=== PATIENT | female | born 1975 | race Caucasian/White ===

== ENCOUNTER 2017-04-24 18:56 | Emergency (ER) | payer OTHER ==
[2017-04-24 19:02] VITALS: BP 145/72; PULSE 83; TEMP 98.3; BMI 26.6
--- NOTE | 2017-04-24 19:02 | PDOC ---
Rapid Medical Evaluation Time Seen by Provider: 04/24/17 18:59 Medical Evaluation: Allergies Allergy/AdvReac Type Severity Reaction Status Date / Time No Known Allergies Allergy Verified 04/24/17 18:59 04/24/17 18:59 I have performed a brief in-person evaluation of this patient. The patient presents with a chief complaint of: vag bleed. Unk preg status Pertinent physicial exam findings:ABSD Soft. NT/ND I have ordered the following:UA, serum preg, cbc, cmp The patient will proceed to the ED for further evaluation. Discharge Disposition - Referrals Referrals: Peggy Fatima PA [Primary Care Provider] - - Patient Instructions - Post Discharge Activity
[2017-04-24 19:21] LABS: URINE APPEARANCE CLEAR; URINE BILIRUBIN NEGATIVE (NEGATIVE); URINE BLOOD 3+ (NEGATIVE); URINE COLOR COLORLESS; URINE GLUCOSE (UA) NEGATIVE (NEGATIVE); URINE KETONE NEGATIVE (NEGATIVE); URINE LEUK ESTERASE NEGATIVE (NEGATIVE); URINE NITRITE NEGATIVE (NEGATIVE); URINE PROTEIN NEGATIVE (NEGATIVE); URINE UROBILINOGEN NEGATIVE mg/dL (0.2-1.0)
[2017-04-24 19:22] LABS: BASO % 0.4 % (0-2.0); EOS % 0.4 % (0-4.5); HEMATOCRIT 38.9 % (32.4-45.2); HEMOGLOBIN 13.3 GM/dL (10.7-15.3); LYMPH % 19.9 % (8-40); MCHC 34.1 g/dl (32.0-36.0); MEAN PLT VOLUME 9.6 fl (7.5-11.1); MONO % 5.6 % (3.8-10.2); NEUT % 73.7 % (42.8-82.8); PLATELET COUNT 171 K/MM3 (134-434); RBC 4.42 M/mm3 (3.60-5.2); RDW 13.6 % (11.6-15.6); WHITE BLOOD COUNT 6.4 K/mm3 (4.0-10.0)
[2017-04-24 19:32] LABS: EPI CELLS RARE /HPF (FEW)
[2017-04-24 19:55] LABS: ALBUMIN 3.8 g/dl (3.4-5.0); ANION GAP 7 (8-16); BILIRUBIN,TOTAL 0.4 mg/dL (0.2-1.0); BLOOD UREA NITROGEN 15 mg/dL (7-18); CALCIUM 8.3 mg/dL (8.5-10.1); CHLORIDE 105 mmol/L (98-107); CO2 26 mmol/L (21-32); CREATININE 0.7 mg/dL (0.55-1.02); GLUCOSE,RANDOM 134 mg/dL (74-106); POTASSIUM 3.4 mmol/L (3.5-5.1); SGOT/AST 21 U/L (15-37); SGPT/ALT 27 U/L (12-78); SODIUM 138 mmol/L (136-145)
[2017-04-24 19:56] LABS: ALK PHOS 116 U/L (45-117)
--- NOTE | 2017-04-24 22:44 | PDOC ---
History of Present Illness - General Chief Complaint: Vaginal Bleeding Stated Complaint: VAGINAL BLEEDING Time Seen by Provider: 04/24/17 18:59 - History of Present Illness Initial Comments: 04/24/17 22:39 Pt is a 41F w/ no significant PMH who presents to ED with painless vaginal bleeding. Pt states she was told by her DOCUMENT COORDINATOR (Peggy Fatima) that she was in Dec. Then in Feb, she went to the same clinic and was told she had an "empty sac". Today around 4pm she developed vaginal bleeding with clots. She has had 4 episodes so far today, and is currently bleeding mildly. She did admit to some mild back and abdominal pain earlier in the day, which has resolved completely. Prior pregnancies were uneventful with spontaneous vaginal deliveries. Pt denies fever, cp, sob, nausea, vomiting, diarrhea. Past History - Past Medical History Allergies/Adverse Reactions: Allergies Allergy/AdvReac Type Severity Reaction Status Date / Time No Known Allergies Allergy Verified 04/24/17 18:59 Home Medications: Ambulatory Orders NK [No Known Home Medication] 04/24/17 COPD: No - Suicide/Smoking/Psychosocial Hx Smoking History: Never smoked Have you smoked in the past 12 months: No Information on smoking cessation initiated: No Hx Alcohol Use: No Drug/Substance Use Hx: No Substance Use Type: None Review of Systems - Review of Systems Able to Perform ROS?: Yes Is the patient limited [place]arian proficient: Yes Constitutional: Yes: Symptoms Reported. No: Chills, Diaphoresis, Fever HEENTM: Yes: Symptoms Reported. No: Eye Pain, Blurred Vision Respiratory: Yes: Symptoms reported. No: Cough, Orthopnea, Shortness of Breath Cardiac (ROS): Yes: Symptoms Reported. No: Chest Pain ABD/GI: Yes: Symptoms Reported. No: Abdominal Distended, Abd. Pain w/ defecation, Constipated, Diarrhea, Difficulty Swallowing, Poor Appetite, Poor Fluid Intake, Abdominal cramping : Yes: Symptoms Reported, Discharge (bloody x 4 episodes). No: Flank Pain, Incontinence, Pain Musculoskeletal: Yes: Symptoms Reported. No: Back Pain, Muscle Pain, Muscle Weakness Integumentary: Yes: Symptoms Reported. No: Rash Neurological: Yes: Symptoms reported. No: Headache, Numbness *Physical Exam - Vital Signs Last Vital Signs Temp Pulse Resp BP Pulse Ox 98.3 F 83 18 145/72 100 04/24/17 19:00 04/24/17 19:00 04/24/17 19:00 04/24/17 19:00 04/24/17 19:00 - Physical Exam General Appearance: Yes: Nourished, Appropriately Dressed. No: Apparent Distress HEENT: positive: EOMI, IVANA, Normal ENT Inspection, Normal Voice Neck: positive: Supple. negative: Tender Respiratory/Chest: positive: Lungs Clear, Normal Breath Sounds. negative: Chest Tender, Respiratory Distress Cardiovascular: positive: Regular Rhythm, Regular Rate, S1, S2. negative: Edema Vascular Pulses: Dorsalis-Pedis (R): 2+, Doralis-Pedis (L): 2+ Female Pelvic Exam: positive: normal external exam, vaginal bleeding (small volume). negative: adnexal tenderness Gastrointestinal/Abdominal: positive: Normal Bowel Sounds, Flat, Soft. negative : Tender, Organomegaly Musculoskeletal: positive: Normal Inspection. negative: CVA Tenderness Neurologic: positive: Fully Oriented, Alert, Normal Mood/Affect ED Treatment Course - LABORATORY CBC & Chemistry Diagram: 04/24/17 19:11 04/24/17 19:11 - ADDITIONAL ORDERS Additional order review: Laboratory Results 04/24/17 04/24/17 04/24/17 19:11 19:11 19:11 Sodium 138 Potassium 3.4 L Chloride 105 Carbon Dioxide 26 Anion Gap 7 L BUN 15 Creatinine 0.7 Creat Clearance w eGFR > 60 Random Glucose 134 H Calcium 8.3 L Total Bilirubin 0.4 AST 21 ALT 27 Alkaline Phosphatase 116 Total Protein 7.0 Albumin 3.8 Beta HCG, Quant Serum , Qual Positive Urine Color Colorless Urine Appearance Clear Urine pH 6.0 Ur Specific [place] 1.002 Urine Protein Negative Urine Glucose (UA) Negative Urine Ketones Negative Urine Blood 3+ H Urine Nitrite Negative Urine Bilirubin Negative Urine Urobilinogen Negative Ur Leukocyte Esterase Negative Urine WBC (Auto) <1 Urine RBC (Auto) 1 Ur Epithelial Cells Rare 04/24/17 19:08 Sodium Potassium Chloride Carbon Dioxide Anion Gap BUN Creatinine Creat Clearance w eGFR Random Glucose Calcium Total Bilirubin AST ALT Alkaline Phosphatase Total Protein Albumin Beta HCG, Quant 106.4 Serum , Qual Urine Color Urine Appearance Urine pH Ur Specific [place] Urine Protein Urine Glucose (UA) Urine Ketones Urine Blood Urine Nitrite Urine Bilirubin Urine Urobilinogen Ur Leukocyte Esterase Urine WBC (Auto) Urine RBC (Auto) Ur Epithelial Cells 04/24/17 19:11 RBC 4.42 MCV 88.0 MCHC 34.1 RDW 13.6 MPV 9.6 Neutrophils % 73.7 Lymphocytes % 19.9 Monocytes % 5.6 Eosinophils % 0.4 Basophils % 0.4 Medical Decision Making - Medical Decision Making 04/24/17 22:45 Pt is a 41F who presents to ED with painless vaginal bleeding and positive test. Labs unremarkable apart from UA pos for blood and BHcg 104 Possible that this is a menstrual cycle. U/S results pending. 04/24/17 23:25 U/S results consistent with blighted ovum/missed . *DC/Admit/Observation/Transfer - Referrals Referrals: Peggy Fatima PA [Primary Care Provider] - - Patient Instructions - Post Discharge Activity
--- NOTE | 2017-04-25 00:10 | PDOC ---
Attending Attestation - Resident Resident Name: Arthur Taveras - ED Attending Attestation I have performed the following: I have examined & evaluated the patient, The case was reviewed & discussed with the resident, I agree w/resident's findings & plan, Exceptions are as noted - HPI HPI: 04/25/17 01:13 The patient is a 41 year old, female with no significant pmhx who presents to the ED who presents with vaginal bleeding that began today. The patient reports that in December she was told she was at her GROUP WORKER appointment, however in February at another appointment she was told she had an empty sac. She reports not having her period for the past three weeks and today began experiencing vaginal bleeding and clots. Reports 4 episodes of period like bleeding with some clots during one of the episodes of bleeding. She also reported lower back and lower abdominal pain which went away with Tylenol. She denies any history of spontaneous in the past. She denies any fevers or chills. Denies headache, weakness or numbness, abd pain, LE edema, N/V/D. - Physicial Exam PE: 04/25/17 01:19 GENERAL: Awake, alert, and fully oriented, in no acute distress HEAD: No signs of trauma EYES: PERRLA, EOMI, sclera anicteric, conjunctiva clear ENT: Auricles normal inspection, hearing grossly normal, nares patent, oropharynx clear without exudates. Moist mucosa NECK: Normal ROM, supple, no lymphadenopathy, JVD, or masses LUNGS: Breath sounds equal, clear to auscultation bilaterally. No wheezes, and no crackles HEART: Regular rate and rhythm, normal S1 and S2, no murmurs, rubs or gallops ABDOMEN: Soft, nontender, normoactive bowel sounds. No guarding, no rebound. No masses EVENT ORGANIZER: scant blood in vaginal vault, os is closed. no midline or adnexal ttp EXTREMITIES: Normal range of motion, no edema. No clubbing or cyanosis. No cords, erythema, or tenderness NEUROLOGICAL: Normal speech, cranial nerves intact, negative pronator drift, 5/ 5 strength in all 4 extremities, normal sensation to light touch in all 4 extremities, normal cerebellar exam, normal gait, normal reflexes and tone SKIN: Warm, Dry, normal turgor, no rashes or lesions noted. - Medical Decision Making 04/25/17 01:35 41-year-old female presents with vaginal bleeding. Urine test is mildly positive, beta hCG is in the 100s. It's unclear if this is positive due to her recent or if she is again. Initial blood pressure slightly elevated, On my exam blood pressure was 124/82. Labs unremarkable with an initial hemoglobin of 13 and repeat hemoglobin 13. Ultrasound with blighted ovum consistent with miscarriage. Discussed results with patient. She did not have any further bleeding in the emergency department. Advised patient to follow up with her OB within 2-3 days. I discussed the physical exam findings, ancillary test results and final diagnoses with the patient. I answered all of the patient's questions. The patient was satisfied with the care received and felt comfortable with the discharge plan and treatment plan. The patient will call their primary care physician within 24 hours to arrange follow-up and will return to the Emergency Department with any new, persistent or worsening symptoms.
[2017-04-25 00:45] LABS: BASO % 0.4 % (0-2.0); EOS % 0.8 % (0-4.5); HEMATOCRIT 39.6 % (32.4-45.2); HEMOGLOBIN 13.6 GM/dL (10.7-15.3); LYMPH % 28.7 % (8-40); MCH 30.2 pg (25.7-33.7); MCHC 34.4 g/dl (32.0-36.0); MEAN CELL VOLUME 87.6 fl (80-96); MEAN PLT VOLUME 9.7 fl (7.5-11.1); MONO % 7.9 % (3.8-10.2); NEUT % 62.2 % (42.8-82.8); PLATELET COUNT 184 K/MM3 (134-434); RBC 4.52 M/mm3 (3.60-5.2); RDW 13.3 % (11.6-15.6); WHITE BLOOD COUNT 5.9 K/mm3 (4.0-10.0)
== END 2017-04-25 02:11 | disposition home or self-care (01) ==
LOC: JER 18:56
DX: O26.891 Other specified pregnancy related conditions, first trimester (principal); O02.0 Blighted ovum and nonhydatidiform mole; Z3A.01 Less than 8 weeks gestation of pregnancy
CPT/HCPCS: 36415; 76817-TC; 80053; 81003; 81015; 84702; 84703; 85025; 86850; 86900; 86901; 99281-25

== ENCOUNTER 2019-04-06 12:00 | Inpatient (IN) | payer OTHER ==
[2019-04-06 12:45] LABS: BASO % 0.2 % (0-2.0); EOS % 0.2 % (0-4.5); HEMATOCRIT 37.2 % (32.4-45.2); HEMOGLOBIN 12.8 GM/dL (10.7-15.3); LYMPH % 15.8 % (8-40); MCH 30.3 pg (25.7-33.7); MCHC 34.3 g/dl (32.0-36.0); MEAN CELL VOLUME 88.2 fl (80-96); MEAN PLT VOLUME 10.3 fl (7.5-11.1); MONO % 6.1 % (3.8-10.2); NEUT % 77.7 % (42.8-82.8); PLATELET COUNT 165 K/MM3 (134-434); RBC 4.22 M/mm3 (3.60-5.2); RDW 14.8 % (11.6-15.6); WHITE BLOOD COUNT 6.4 K/mm3 (4.0-10.0)
[2019-04-06 12:58] LABS: INR 0.97 (0.83-1.09); PROTHROMBIN TIME (PATIENT) 11.4 SEC (9.7-13.0)
[2019-04-06 13:01] LABS: ACTIVATED PTT 27.8 SECONDS (25.2-36.5)
[2019-04-06 13:09] LABS: BLOOD UREA NITROGEN 11.8 mg/dL (7-18); CALCIUM 8.5 mg/dL (8.5-10.1); CREATININE 0.6 mg/dL (0.55-1.3); POTASSIUM 3.8 mmol/L (3.5-5.1)
[2019-04-06] MEDS ORDERED: ELECTROLYTE-148 SOLN 1,000 ML IV SCH (13:15)
[2019-04-06] MEDS ORDERED: OXYTOCIN 30 UNITS in 0.9% NS 30 UNIT/500 ML INFUS.BAG IVPB ONE (13:20)
--- NOTE | 2019-04-06 13:22 | HP ---
Past Medical History - Admission Chief Complaint: IOL History of Present Illness: 43yo @ 39.2wks by yang, LILY 04/11/19 here for IOL. Preg c/b AMA,EFW 6.1lbs on 35wk yang (86tile, AC 95%tile)- pelvis tested to 8.6lbs [facility] @ [address] History Source: Patient - Past Medical History CENTRIFUGAL SEPARATOR: No: Alzheimer's, CVA, Dementia, Migraine, Multiple Sclerosis, Peripheral Neuropathy, Parkinson's, Seizure, Syncope, TIA, Vertigo, Other Cardiovascular: No: AFIB, Aneurysm, Aortic Insufficiency, Aortic Stenosis, CAD, CHF, Deep Vein Thrombosis, HTN, Hyperlipdemia, NH, Mitral Insufficiency, Mitral Stenosis, Murmur, Pulmonary Hypertension, Other Pulmonary: No: Asthma, Bronchitis, Cancer, COPD, O2 Dependent, Pneumonia, Previously Intubated, Pulmonary Embolus, Pulmonary Fibrosis, Sleep Apnea, Other Gastrointestinal: No: Ascites, Cancer, Constipation, Crohn's Disease, Diverticulitis, Diverticulosis, Esophageal Varices, Gastritis, GERD, GI Bleed, Hemorrhoids, Hiatal Hernia, Inflamatory Bowel Disease, Irritable Bowel Disease, Pancreatitis, Peptic Ulcer Disease, Ulcerative Colitis, Other Hepatobiliary: No: Cirrhosis, Cholelithiasis, Cholecystitis, Choledocholithiasis , Hepatitis A, Hepatitis B, Hepatitis C, Other Renal/: No: Renal Failure, Renal Inusuff, BPH, Cancer, Hematuria, Hemodialysis , Neurogenic Bladder, Renal Calculi, UTI, Other Reproductive: No: Ectopic , Endometriosis, Fibroids, PID, Polycystic Ovary Syndrome, Postmenopausal, Other ...: 4 ...Para: 3 ...Term: 3 Heme/Onc: Yes: Anemia - Past Surgical History Past Surgical History: Yes: None Hx Myomectomy: No Hx Transabdominal Cerclage: No - Smoking History Smoking history: Never smoked Have you smoked in the past 12 months: No - Alcohol/Substance Use Hx Alcohol Use: No - Social History Usual Living Arrangement: Yes: With Spouse, Assisted Living ADL: Independent History of Recent Travel: No Home Medications - Allergies Allergies/Adverse Reactions: Allergies Allergy/AdvReac Type Severity Reaction Status Date / Time No Known Allergies Allergy Verified 04/24/17 18:59 - Home Medications Home Medications: Ambulatory Orders NK [No Known Home Medication] 04/24/17 Physical Exam - Maternity Constitutional: Yes: Well Nourished - Abdominal Exam/OB Number of Fetuses: Single Presentation: Vertex Contractions: Yes Regularity: Regular Intensity: Mild/Mod Category: I Accelerations: Non-Uniform Decelerations: None - Vaginal Exam/OB Vaginal Bleediing: No Speculum Exam: No Dilatation (cm): 3 Effacement (%): 50 Amniotic Membrane Status: Intact Presentation: Vertex/Position Station: -3 - Physical Exam Edema: No - Labs Lab Results: CBC, BMP 04/06/19 12:28 04/06/19 12:28 Imaging - Results Ultrasound: Report Reviewed Assessment/Plan 43yo @ 39.2wks here for IOL given age, sono (86%tile) Admit to L&D NPO, IVFS Cat I tracing AROM/pitocin Epidural prn Anticipate IGNACIO Aburto
[2019-04-06] MEDS ORDERED: OXYTOCIN 30 UNITS in 0.9% NS 30 UNIT/500 ML INFUS.BAG IVPB SCH (13:30)
--- NOTE | 2019-04-06 13:38 | PN ---
Progress Note, Labor Vaginal Exam #1 Labor Exam Date: 04/06/19 Labor Exam Time: 13:37 Heart Rate (range): Cat I Dilatation: 3 Effacement (%): 50 Amniotic Membrane Status: Ruptured Presentation: Vertex/Position Station: -3 Remarks: AROM, clears Start pitocin soon Anticipate
[2019-04-06 14:27] VITALS: BMI 36.2
[2019-04-06] MEDS ORDERED: PROMETHAZINE HCL 25 MG/1 ML VIAL IVPB ONE (16:15)
[2019-04-06] MEDS ORDERED: BUTORPHANOL TARTRATE 1 MG/ML VIAL IVPB ONE (16:15)
--- NOTE | 2019-04-06 16:16 | PN ---
Progress Note, Labor Vaginal Exam #2 Labor Exam Date: 04/06/19 Labor Exam Time: 16:16 Heart Rate (range): Cat I Dilatation: 3 Effacement (%): 50 Amniotic Membrane Status: Ruptured Presentation: Vertex/Position Station: -2 Remarks: Feeling more uncomfortable Requesting pain medicine Unchanged, but head lower Will give Stadol x 1
--- NOTE | 2019-04-06 19:30 | PN ---
Progress Note, Labor Vaginal Exam #3 Labor Exam Date: 04/06/19 Labor Exam Time: 19:29 Heart Rate (range): Cat II Dilatation: 5 Effacement (%): 70 Amniotic Membrane Status: Ruptured Presentation: Vertex/Position Station: -2 Remarks: Still very uncomfortable, declining epidural Continue pitocin Anticipate
[2019-04-06] MEDS ORDERED: OXYTOCIN 20 UNITS in 0.9% NS 20 UNIT/1,000 ML INFUS.BAG IV ONE (20:44)
[2019-04-06] MEDS ORDERED: LIDOCAINE HCL 1% PRESERVATIVE FREE - 30ML VIAL ONE (20:45)
[2019-04-06] MEDS ORDERED: IBUPROFEN 600 MG TABLET (FP) PO PRN (21:30)
[2019-04-06] MEDS ORDERED: METHYLERGONOVINE MALEATE 0.2 MG/1 ML AMP IM PRN (21:30)
[2019-04-06] MEDS ORDERED: ACETAMINOPHEN 325 MG TABLET (FP) PO PRN (21:30)
[2019-04-06] MEDS ORDERED: OXYTOCIN 20 UNITS in 0.9% NS 20 UNIT/1,000 ML INFUS.BAG IV SCH (21:30)
[2019-04-06] MEDS ORDERED: WITCH HAZEL 50% (TUCKS) 40 PAD/JAR PAD TP PRN (21:30)
[2019-04-06] MEDS ORDERED: BISACODYL 10 MG SUPP.RECT RC PRN (21:30)
[2019-04-06] MEDS ORDERED: BENZOCAINE 20% 57 GM BOTTLE TP PRN (21:30)
[2019-04-06] MEDS ORDERED: BENZOCAINE 28 GM HEMORRHOIDAL OINTMENT TP PRN (21:30)
--- NOTE | 2019-04-06 21:30 | PN ---
Delivery - Delivery Vaginal Delivery: Spontaneous Type of Anesthesia: Local Episiotomy/Laceration: Midline, 1st degree EBL (cc): 350 Delivery, Single - Stages of Labor Placenta: Yes: Spontaneous - Condition of Security Solutions Engineer/Throat Cutter Present: No Gender: Male Position: Right, OA - 1 Minute Total Score: 9 5 Minutes Total Score: 9 - [place] Feeding Plan Initial Plan: Elected not to breastfeed exclusively throughout hospitalization Remarks - Remarks Remarks: of VMI from GREGORIA position over intact perineum. No anesthesia. No nuchal. No meconium. Spontaneous delivery of anterior shoulder and body. Infant placed on maternal abdomen. Cord clamped and cut. Weight pending to allow skin to skin. Apgars 9/9. Spontaneous delivery of intact placenta, 3VC. Perineum inspected, first degree laceration repaired with 2-0 chromic after 6cc of 1% lidocaine injected. Hemostasis noted, but Methergine IM given x 1 prophylactically. Mother and baby doing well. Bianca Aburto MD
[2019-04-07] MEDS: FERROUS SO4 325 MG TABLET (FP) PO SCH ×3 (00:43→21:33)
--- NOTE | 2019-04-07 08:22 | PN ---
Post Progress Note - Subjective Subjective: Pain controlled. Bleeding c/w menses. No fevers/chills. + Type of Delivery: Vital Signs: Vital Signs Temperature 98.1 F 04/07/19 06:00 Pulse Rate 83 04/07/19 06:00 Respiratory Rate 18 04/07/19 06:00 Blood Pressure 101/49 L 04/07/19 06:00 O2 Sat by Pulse Oximetry (%) 100 04/06/19 22:20 Uterus: Yes: Fundus below umbilicus Abdomen/GI: Yes: Abdomen soft, Tolerating PO Lochia: Yes: Rubra Lochia, amount: Small Extremities: Yes: Calves non-tender Perineum: Yes: Laceration Activity: Ambulating - Labs Labs: CBC WBC 6.4 K/mm3 (4.0-10.0) 04/06/19 12:28 RBC 4.22 M/mm3 (3.60-5.2) 04/06/19 12:28 Hgb 12.8 GM/dL (10.7-15.3) 04/06/19 12:28 Hct 37.2 % (32.4-45.2) 04/06/19 12:28 MCV 88.2 fl (80-96) 04/06/19 12:28 MCH 30.3 pg (25.7-33.7) 04/06/19 12:28 MCHC 34.3 g/dl (32.0-36.0) 04/06/19 12:28 RDW 14.8 % (11.6-15.6) D 04/06/19 12:28 Plt Count 165 K/MM3 (134-434) 04/06/19 12:28 MPV 10.3 fl (7.5-11.1) 04/06/19 12:28 Absolute Neuts (auto) 5.0 K/mm3 (1.5-8.0) 04/06/19 12:28 Neutrophils % 77.7 % (42.8-82.8) D 04/06/19 12:28 Lymphocytes % 15.8 % (8-40) D 04/06/19 12:28 Monocytes % 6.1 % (3.8-10.2) 04/06/19 12:28 Eosinophils % 0.2 % (0-4.5) 04/06/19 12:28 Basophils % 0.2 % (0-2.0) 04/06/19 12:28 Nucleated RBC % 0 % (0-0) 04/06/19 12:28 Assessment/Plan 43yo s/p , PPD#1 Routine PPcare PO pain control Labs pending Anticipate d/c to home PPD#2 Ifeanyi Aburto
[2019-04-07 09:06] LABS: BASO % 0.2 % (0-2.0); EOS % 0.1 % (0-4.5); HEMATOCRIT 32.9 % (32.4-45.2); HEMOGLOBIN 11.3 GM/dL (10.7-15.3); LYMPH % 13.5 % (8-40); MCH 30.3 pg (25.7-33.7); MCHC 34.5 g/dl (32.0-36.0); MEAN CELL VOLUME 87.9 fl (80-96); MEAN PLT VOLUME 10.2 fl (7.5-11.1); MONO % 7.3 % (3.8-10.2); NEUT % 78.9 % (42.8-82.8); PLATELET COUNT 153 K/MM3 (134-434); RBC 3.74 M/mm3 (3.60-5.2); RDW 14.8 % (11.6-15.6); WHITE BLOOD COUNT 10.2 K/mm3 (4.0-10.0)
[2019-04-07] MEDS: PRENATAL VITAMINS W/ FOLIC ACID TABLET (FP) PO SCH (09:41)
[2019-04-07] MEDS ORDERED: SENNOSIDES/DOCUSATE COMBO (SENNA PLUS) TABLET (UD) PO PRN (22:00)
--- NOTE | 2019-04-08 07:50 | DS ---
Physical Exam-PLATINUMSMITH Vital Signs: Vital Signs Temperature 98 F 04/07/19 22:00 Pulse Rate 76 04/07/19 22:00 Respiratory Rate 18 04/07/19 22:00 Blood Pressure 114/66 04/07/19 22:00 O2 Sat by Pulse Oximetry (%) 100 04/06/19 22:20 Constitutional: Yes: Well Nourished, No Distress, Calm Eyes: Yes: WNL, Conjunctiva Clear, EOM Intact HENT: Yes: WNL, Atraumatic, Normocephalic Neck: Yes: WNL, Supple, Trachea Midline Cardiovascular: Yes: WNL, Regular Rate and Rhythm Respiratory: Yes: WNL, Regular, CTA Bilaterally Gastrointestinal: Yes: WNL ...Rectal Exam: Yes: WNL Renal/: Yes: WNL ....Post : Yes: Uterus firm, Uterus non-tender, Slight lochia rubra Breast(s): Yes: WNL Musculoskeletal: Yes: WNL Extremities: Yes: WNL Edema: No Integumentary: Yes: WNL Neurological: Yes: WNL, Alert, Oriented ...Motor Strength: WNL Psychiatric: Yes: WNL, Alert, Oriented Labs: CBC, BMP 04/07/19 08:20 04/06/19 12:28 Delivery - Delivery Vaginal Delivery: Spontaneous Type of Anesthesia: Local Episiotomy/Laceration: Midline, 1st degree EBL (cc): 350 Delivery, Single - Stages of Labor Date 1st Stage Initiatied: 04/06/19 Time 1st Stage Initiated: 16:00 Date 2nd Stage Initiated: 04/06/19 Time 2nd Stage Initiated: 21:00 Date of Delivery: 04/06/19 Time of Delivery: 21:08 Time Placenta Delivered: 21:20 Placenta: Yes: Spontaneous - Condition of Infant Reproductive Surgeon/Heating And Refrigeration Inspector Present: No Infant Gender: Male Weight: 8 lb 5 oz Position: Right, OA Total Hours ROM (Hrs/Mins): 8 hours 31 minutes - 1 Minute Total Score: 9 5 Minutes Total Score: 9 - [place] Feeding Plan Initial Plan: Elected not to breastfeed exclusively throughout hospitalization Discharge Summary Reason For Visit: INDUCTION OF LABOR Procedures: Principal: Other Procedures: median episiotomy Hospital Course: no complication Health Concerns: none Plan of Treatment: cont. iron, vit follow up for PP in [facility] care 4 weeks Goals: breast feeding for 1 year, exercise , wt loss Condition: Stable - Instructions Diet, Activity, Other Instructions: Regular Diet Follow up in 4-[address] Aburto for your visit Referrals: Bianca Aburto MD [Staff Physician] - 1 Month Disposition: HOME - Home Medications Comprehensive Discharge Medication List: Ambulatory Orders Ibuprofen 600 mg PO Q6H PRN #30 tablet 04/06/19 Pnv No.95/Ferrous Fum/Folic AC [ Vitamin Tablet] 1 each PO DAILY
[2019-04-08 08:33] VITALS: BP 106/69; PULSE 65; TEMP 97.2
[2019-04-08] MEDS: FERROUS SO4 325 MG TABLET (FP) PO SCH (09:40)
[2019-04-08] MEDS: PRENATAL VITAMINS W/ FOLIC ACID TABLET (FP) PO SCH (09:40)
== END 2019-04-08 12:55 | disposition home or self-care (01) | DRG 560 ==
LOC: JLDR 12:00 → J3W 23:00
PROVIDERS: ADMIT Obstetrics & Gynecology; ATTEND Obstetrics & Gynecology
PROC: 0HQ9XZZ Repair Perineum Skin, External Approach (ICD-10-PCS; principal; 2019-04-06)
PROC: 10E0XZZ Delivery of Products of Conception, External Approach (ICD-10-PCS; 2019-04-06)
DX: O70.0 First degree perineal laceration during delivery (principal); Z3A.39 39 weeks gestation of pregnancy; Z37.0 Single live birth
CPT/HCPCS: 36415; 59409; 80048; 85025; 85610; 85730; 86593; 86850; 86900; 86901

== ENCOUNTER → 2023-05-13 | Day surgery (SDC) | payer OTHER | END | disposition home or self-care (01) | LOC: JRADUS-SUR 08:47 | PROVIDERS: ATTEND Nurse Practitioner Adult Health | PROC: 0H9U3ZX Drainage of Left Breast, Percutaneous Approach, Diagnostic (ICD-10-PCS; principal; 2023-05-13) | DX: N63.20 Unspecified lump in the left breast, unspecified quadrant (principal) | CPT/HCPCS: 19083; 77065-TC; 87899; 88305-TC; 88312-TC; 88342-TC; A4648 ==